=== PATIENT | male | born 1950 | race Caucasian/White ===

== ENCOUNTER 2023-02-20 08:25 | Outpatient (CLI) | payer MEDICARE, BC, SELFPAY ==
--- NOTE | 2023-02-20 08:15 | DI.RAD_ITS ---
Exam(s) XR ANKLE LT COMPLETE EXAM: XR ANKLE LT COMPLETE CLINICAL HISTORY: L ankle pain. TECHNIQUE: 2D digital imaging was performed. COMPARISON: No exams were available for comparison FINDINGS: 3 views No evidence fracture or widening of the ankle mortise. There is a degenerative subarticular cyst in the medial aspect of the talar dome. There is no obvious narrowing of the tibiotalar-ankle joint. S ubtalar joint also appears unremarkable. No inferior calcaneal spur. No pes planus. Small enthesop hyte noted posteriorly at the Achilles insertion on the posterior calcaneus. IMPRESSION: There is a small degenerative subarticular cyst in the medial aspect of the talar dome. DATA REPOSITORY: RADIATION DOSE DELIVERED:
== END 2023-02-20 08:26 | disposition home or self-care (01) ==
LOC: DIORS 08:37
PROVIDERS: PCP Family Medicine; Referring Provider Family Medicine; Visit Provider Physician Assistant
DX: M76.822 Posterior tibial tendinitis, left leg
CPT/HCPCS: 99203; 73610